=== PATIENT | female | born 1955 | race Caucasian/White ===

== ENCOUNTER → 2016-05-10 | Outpatient (CLI) | payer OTHER ==
[~2016-05-10] MED LIST: CELEBREX200 MG PO; COLACE100 MG PO; CPAP INH; CYMBALTA60 MG PO; DILAUDID 2MG(HYD2 MG PO; LASIX40 MG PO; LISINOPRIL-HCT1 EAC2 PO; MIRALAX17 GM PO; MYCOSTATIN CREA30 GM TOP; NEURONTIN600 MG PO; POTASSIUM CHLO20 ME1 PO; TOPROL XL25 MG PO; TYLENOL EXTRA500 MG PO; VITAMIN D1000 UNIT PO; XARELTO10 MG PO
== END | disposition disaster alternative care site (69) ==
LOC: GRAD 10:40
DX: M48.06 Spinal stenosis, lumbar region (principal); M43.16 Spondylolisthesis, lumbar region; M54.16 Radiculopathy, lumbar region; M47.818 Spondylosis without myelopathy or radiculopathy, sacral and sacrococcygeal region

== ENCOUNTER 2016-07-25 10:00 | Inpatient (IN) | payer OTHER ==
[~2016-07-25] VITALS: Ht 172.7 cm; Wt 133.0 kg
--- NOTE | ~2016-07-25 | CON ---
PATIENT'S NAME: NATALIIAJazmín [facility] AGE: 60 Y [address] ROOM: [place] [address] LOCATION: [facility] ADMIT DATE: 08/02/2016 Consultation DISCHARGE DATE: FAMILY PHYSICIAN: Christina Khan DO ATTENDING PHYSICIAN: KILLIAN KERR DATE OF CONSULTATION: 08/02/2016 REFERRING PHYSICIAN: Killian Kerr MD REASON FOR CONSULTATION: Medical management. HISTORY OF PRESENT ILLNESS: The patient is a 60-year-old female who is postop day 0 for left total knee arthroplasty. At this point, the patient is resting comfortably on the medical-surgical unit and has no complaints. REVIEW OF SYSTEMS: The patient denies any shortness of breath, chest pain, nausea, vomiting, diarrhea, or palpitations. PAST MEDICAL HISTORY: Significant for, 1. Obstructive sleep apnea, on CPAP. 2. Essential hypertension, on medications. 3. Peripheral neuropathy, not fully diagnosed. 4. Chronic lower extremity edema. PAST SURGICAL HISTORY: Significant for prior right total knee arthroplasty. CURRENT MEDICATIONS: 1. Cholecalciferol. 2. Duloxetine. 3. Furosemide. 4. Gabapentin. 5. Lisinopril/hydrochlorothiazide. 6. Metoprolol. 7. Potassium chloride. FAMILY HISTORY: Reviewed and is noncontributory due to known underlying etiology for her presentation to the hospital. [facility] 60 Y [address] ROOM: [place] [address] LOCATION: [facility] ADMIT DATE: 08/02/2016 Consultation DISCHARGE DATE: FAMILY PHYSICIAN: Christina Khan DO ATTENDING PHYSICIAN: KILLIAN KERR SOCIAL HISTORY: Negative for any history of ongoing toxic habits. PHYSICAL EXAMINATION: VITAL SIGNS: Blood pressure 142/79, saturating 98% on 4 L nasal cannula, pulse is 70, temperature is 97.9. GENERAL: Appears as an obese, middle-aged female, in no acute distress. NEUROLOGIC: Nonfocal. EYES: Pupils are equal and reactive to light. LYMPHATIC: No cervical lymphadenopathy. ENDOCRINE: No thyromegaly. LUNGS: Clear to auscultation bilaterally. HEART: Rate is regular. No appreciable murmurs, gallops, or rubs. GI: Abdomen is soft, nontender, nondistended. : No costovertebral angle tenderness. VASCULAR: 2+ pedal pulses. MUSCULOSKELETAL: Deferred. SKIN: Warm and dry. PSYCH: Appropriate mood, cognition, and affect. LABORATORY DATA: Studies performed in the hospital so far are none. IMPRESSION AND RECOMMENDATIONS: This is a 60-year-old female, postop day 0 for a left total knee arthroplasty. Individual problems to be addressed as follows: 1. Essential hypertension. The patient's medications have already been continued. 2. Obstructive sleep apnea. We will continue her on her home CPAP. 3. Peripheral neuropathy. She has been continued on her gabapentin. 4. Chronic lower extremity edema. She has been continued on her Lasix. 5. Pain regimen and bowel regimen have been ordered by the Primary Service. We will follow the patient with you until discharge. Thank you for allowing us to participate in the care of this patient. Time dedicated to this patient's encounter is 15 minutes. MD EBONI DE JESUS/dread PATIENT'S NAME: BARRY KEARNEY [facility] AGE: 60 Y [address] ROOM: [place] [address] LOCATION: [facility] ADMIT DATE: 08/02/2016 Consultation DISCHARGE DATE: FAMILY PHYSICIAN: Christina Khan DO ATTENDING PHYSICIAN: KILLIAN KERR /[id number] d: 08/03/16 0217 t: 08/15/16 2354, CONSULTATION REPORT
--- NOTE | ~2016-07-25 | DS ---
PATIENT'S NAME: BARRY KEARNEY [facility] AGE: 60 Y [address] ROOM: [place] [address] LOCATION: [facility] ADMIT DATE: 08/02/2016 Discharge Summary DISCHARGE DATE: 08/04/2016 FAMILY PHYSICIAN: Christina Khan DO ATTENDING PHYSICIAN: Killian Kerr PRIMARY DIAGNOSIS: Degenerative joint disease of the left knee. SECONDARY DIAGNOSES: 1. Obstructive sleep apnea, on CPAP. 2. Hypertension. 3. Obesity, BMI 45. PROCEDURE PERFORMED: Left total knee arthroplasty with computer navigation. HISTORY: The patient is a 60-year-old female, who presents with advanced left knee degenerative joint disease and associated severely compromised activities of daily living. The patient has decided to proceed with total knee arthroplasty after having been thoroughly counseled regarding the risks, benefits, limitations and alternatives. Please refer to the outpatient clinic notes and admission history and physical for this patient. HOSPITAL COURSE: The patient underwent a left total knee arthroplasty on 08/02/2016 without complications. Spinal anesthesia plus adductor canal block plus periarticular local anesthesia was utilized. The patient received 24 hours of perioperative prophylactic antibiotics and remained hemodynamically stable, neurovascularly intact throughout the entire hospital course. The postoperative prophylactic deep venous thrombosis prophylaxis consisted of Xarelto 10 mg, early mobilization and pneumatic compression devices. Daily physical therapy for gait training, transfer training range of motion and quadriceps isometric exercises were received. The patient progressed well in physical therapy. On the date of discharge, 08/04/2016, the incision at the knee was healing well and showed no signs of infection. DISPOSITION: Home. DISCHARGE ACTIVITY: The patient is to bear weight as tolerated with range of motion and quadriceps isometric exercises as instructed. The operative extremity is to be elevated at least 90% of the day. There is to be sterile 4x4 gauze dressings to the incision daily. Dr. Kerr is to be notified immediately if there is any increased pain, fevers, chills, erythema, or drainage. DISCHARGE MEDICATIONS: Include, 1. Xarelto 10 mg, take 1 tablet p.o. daily for DVT prevention. PATIENT'S NAME: BARRY KEARNEY [facility] AGE: 60 Y [address] ROOM: [place] [address] LOCATION: [facility] ADMIT DATE: 08/02/2016 Discharge Summary DISCHARGE DATE: 08/04/2016 FAMILY PHYSICIAN: Christina Khan DO ATTENDING PHYSICIAN: Killian Kerr 2. Dilaudid 2 mg, take 1 to 2 tablets p.o. every 4 hours as needed for pain. 3. Celebrex 200 mg, take 1 tablet p.o. b.i.d. as needed. FOLLOWUP: Followup date is scheduled for 08/09/2016 for initial postoperative evaluation and x-rays at that time. DANNA EM FOR KILLIAN KERR MD TLB/modl /[id number] d: 08/08/1611 t: 08/09/16 1109, DISCHARGE SUMMARY
--- NOTE | ~2016-07-25 | OR ---
PATIENT'S NAME: CATARINA KEARNEY [facility] AGE: 60 Y [address] ROOM: [place] [address] LOCATION: [facility] ADMIT DATE: 08/02/2016 OR/Procedure Report DISCHARGE DATE: FAMILY PHYSICIAN: Christina Khan DO ATTENDING PHYSICIAN: KILLIAN KERR SURGEON: Killian Kerr MD AIRPLANE TECHNICIAN: 1. DANNA De León. 2. Trevin Jessica CST/MARKER DELIVERY. DATE OF PROCEDURE: 08/02/2016 PRE-OP DIAGNOSES: 1. Degenerative joint disease, left knee. 2. Obesity (5 feet 8 inches tall and 127 kilograms). POST-OP DIAGNOSES: 1. Degenerative joint disease, left Knee. 2. Obesity (5 feet 8 inches tall and 127 kilograms). OPERATION: Left total knee arthroplasty with computer navigation. ANESTHESIA: Spinal anesthesia plus adductor canal block plus periarticular local anesthesia (ropivacaine with epinephrine and Toradol). ESTIMATED BLOOD LOSS: Less than 10 mL. DRAIN: None. SPECIMEN: None. COMPLICATIONS: None. IMPLANT SYSTEM: Hitesh Triathlon. 1. Size 4 left posterior stabilized femoral component. 2. Size 3 universal modular tibial baseplate. 3. A 9 mm posterior stabilized size 3 X3 tibial polyethylene insert. 4. A 32 mm oval X3 patellar component. INDICATIONS FOR SURGERY: Catarina Kearney is a 60-year-old female who presents with advanced left knee degenerative joint disease and associated severely compromised activities of daily living. The patient has decided to proceed with knee replacement after having been thoroughly counseled regarding the associated risks, benefits, and limitations. We have specifically reviewed the risks and implications of infection, deep venous thrombosis, pulmonary embolism, mortality, neurovascular complications, blood transfusion (and associated potential for disease transmission or transfusion reaction), PATIENT'S NAME: CATARINA KEARNEY [facility] AGE: 60 Y [address] ROOM: [place] [address] LOCATION: [facility] ADMIT DATE: 08/02/2016 OR/Procedure Report DISCHARGE DATE: FAMILY PHYSICIAN: Christina Khan DO ATTENDING PHYSICIAN: KILLIAN KERR stiffness, instability, mechanical deterioration of the components (due to wear and or loosening), and the potential need for revision. We have also emphasized the importance of active involvement and compliance with post- operative physical therapy as a means of optimizing range of motion and functional recovery. Informed consent has been granted. DESCRIPTION OF PROCEDURE: The patient was positioned supine after administration of anesthesia and prophylactic antibiotics. A well-padded pneumatic tourniquet was placed around the left proximal thigh, and the left lower extremity was prepped and draped with vigilant sterile technique. The patient's name as well as the intended operative side and procedure were confirmed with a verbal time-out involving myself, the circulating nurse, the scrub nurse, and the anesthesiologist. Examination under anesthesia demonstrated no active skin lesions or masses. There was a large effusion. There was no erythema. There was no abnormal warmth. There was a large soft tissue envelope surrounding the knee, ankle, calf, and thigh. Range of motion under anesthesia was from a 6 degree flexion contracture to 110 degrees of flexion. There was no ligamentous insufficiency. The left lower extremity was elevated and exsanguinated with an Esmarch wrap, and the pneumatic tourniquet was inflated to 300 mmHg. The knee was approached through a longitudinal midline incision. A medial parapatellar arthrotomy was performed and the patella was everted. Examination of the joint space demonstrated a large amount of benign-appearing translucent synovial fluid. The cruciate ligaments were intact. There were large osteophytes at the medial and lateral margins of the intercondylar notch. There was a large amount of subcutaneous adipose tissue (measuring approximately 3 inches between the rectus femoris tendon and the skin). There was high-grade partial-thickness articular cartilage loss involving 90% of the patella and 90% of the femoral trochlea. There were very large osteophytes at the superior and inferior and lateral margins of the patella. There were 2 cm diameter osteophytes at the superomedial and superolateral margins of the femoral trochlea. There were large osteophytes at the medial and lateral margins of the femoral trochlea as well. There was a 1 x 3 cm osteophyte at the medial femoral condyle. There was a very large osteophyte at the lateral femoral condyle as well, as well as the posterior aspect of the medial and lateral femoral condyles. There was an abnormally large fabella with associated osteophytes and eburnation. This was debrided but not excised. There were intermixed grade 3 and grade 4 degenerative changes throughout the medial femoral condyle and medial tibial plateau. There was a large osteophyte at the lateral femoral condyle. There was a 1 cm x 1.5 cm region of high-grade partial thickness articular cartilage loss and full-thickness PATIENT'S NAME: CATARINA KEARNEY [facility] AGE: 60 Y [address] ROOM: [address] [address] LOCATION: [facility] ADMIT DATE: 08/02/2016 OR/Procedure Report DISCHARGE DATE: FAMILY PHYSICIAN: Christina Khan DO ATTENDING PHYSICIAN: KILLIAN KERR fissuring at the posterior aspect of the lateral femoral condyle. There were grade 2 degenerative changes at the lateral tibial plateau. There was extensive degenerative tearing of the remnants of the medial and lateral menisci. Remnants of the menisci and cruciate ligaments were excised. The CargoSense computer navigation femoral tracker was pinned in place at the distal aspect of the femoral trochlea. Absence of motion between the femur and the tracking device was confirmed manually and visually. Femoral osseous landmarks were obtained in order to calibrate the computer navigation system. Landmarks included the center of rotation of the ipsilateral hip, the center-point of the distal femur, the femoral AP axis, 57 points on the medial femoral condyle articular surface, and 57 points on the lateral femoral condyle articular surface. The CargoSense computer navigation system was subsequently utilized to position the distal femoral resection block such that the distal femoral resection was performed perfectly perpendicular to the femoral mechanical axis. The distal femoral resection was performed with a imeem oscillating saw. The CargoSense computer navigation tibial tracker was pinned in place at the anterior aspect of the tibial plateau. Absence of motion between the tibia and the tracking device was confirmed manually and visually. Tibial osseous landmarks were obtained in order to calibrate the computer navigation system. Landmarks included the center-point of the tibial plateau, the AP tibial axis, 57 points on the medial tibial plateau articular surface, 57 points on the lateral tibial plateau articular surface, the medial malleolus, and the lateral malleolus. The CargoSense computer navigation system was subsequently utilized to position the proximal tibial resection block such that the proximal tibial resection was performed perfectly perpendicular to the tibial mechanical axis. The proximal tibial resection was performed with a Wooshii Precision oscillating saw. Perpendicularity of the tibial resection with respect to the tibial shaft axis was reconfirmed by inserting a spacer- block attached to an extramedullary guide tavon. External rotation of the anterior and posterior femoral resections was set parallel to the epicondylar axis and carefully adjusted in order to create a rectangular flexion gap. The box resection was performed with a reciprocating saw. Anterior and posterior chamfer resections were performed with the oscillating saw. Posterior condyle osteophytes were excised with an osteotome. All other osteophytes were excised with a rongeur. Resection of all remnants of the menisci was reconfirmed. Flexion and extension gaps were confirmed to be symmetric and well balanced with a spacer-block technique. The patella resection was performed with an oscillating saw such that the composite thickness of the reconstructed patella was equivalent to the PATIENT'S NAME: CATARINA KEARNEY [facility] AGE: 60 Y [address] ROOM: [place] [address] LOCATION: [facility] ADMIT DATE: 08/02/2016 OR/Procedure Report DISCHARGE DATE: FAMILY PHYSICIAN: Christina Khan DO ATTENDING PHYSICIAN: KILLIAN KERR thickness of the eyak patella. Patella tracking was confirmed to be optimal, and there was no need for a lateral retinacular release. All trial components were removed and all prepared osseous surfaces were thoroughly irrigated with pulsatile saline lavage and dried prior to cementing all three components in a single stage using Wooshii Simplex cement containing pre-mixed tobramycin. All extruded excess cement was removed. The entire joint space was thoroughly inspected and thoroughly irrigated with bacteriostatic pulsatile saline lavage to assure that there was no residual debris of any sort. Final range of motion was from full extension (with no passive hyperextension) to 130 degrees of flexion. Patella tracking was reconfirmed to be optimal. There was excellent anteroposterior stability at 90 degrees of flexion. There was 0 mm of medial lift-off to valgus stress in full extension. There was 1 mm of lateral lift-off to varus stress in full extension. The arthrotomy was closed with multiple simple and [id number] interrupted #1 Vicryl. Subcutaneous tissues were thoroughly re-irrigated with bacteriostatic pulsatile saline lavage. Subcutaneous tissues were re- approximated with simple buried interrupted #0 Vicryl sutures. The skin was closed with simple buried interrupted 2-0 Vicryl sutures followed by surgical meredith. The dressing consisted of Xeroform gauze, 4x4 gauze, ABD pads and two 6-inch Phoenix Wraps. There were no intra-operative complications. It should be noted that the physician's hospital administrative assistant played an active, integral role throughout this entire operation. By providing expert retraction, they greatly facilitated and expedited safe and effective exposure of the distal femur, proximal tibia and patella for preparation and implantation of the components. They were also actively involved in the patient's positioning, prepping and draping, as well as wound closure. MD TODD GR/dread /[id number] d: 08/02/162057 t: 08/04/162035, OPERATIVE SUMMARY
[2016-07-25] MEDS ORDERED: NEURONTIN600 MG PO (10:10)
[2016-07-25] MEDS ORDERED: LISINOPRIL-HCT1 EAC2 PO (10:14)
[2016-07-25] MEDS ORDERED: TOPROL XL25 MG PO (10:14)
[2016-07-25] MEDS ORDERED: CYMBALTA60 MG PO (10:15)
[2016-07-25] MEDS ORDERED: POTASSIUM CHLO20 ME1 PO (10:16)
[2016-07-25] MEDS ORDERED: LASIX40 MG PO (10:16)
[2016-07-25] MEDS ORDERED: VITAMIN D1000 UNIT PO (10:17)
[2016-07-25] MEDS ORDERED: CPAP INH (10:23)
--- NOTE | 2016-08-02 19:32 | NUR ---
Pt here from PACU at 1730. Spinal anesthetic. Sensation to thigh only. Pt has good pulse left foot. Foot warm, sandeep well. Ice to knee. Dressing dry and intact. Brought own CPAP. On O2 at 4L. Pt has slight headache and slight nausea. Zofran at 1750 and says some relief. Takes po water. No void yet. Is use at 1250.
--- NOTE | 2016-08-03 05:05 | NUR ---
Patient alert and oriented x3, very pleasant and cooperative, csm with in normal limits, has 2+ edema to lower extremities that is chronic prior to surgery, dressing is clean dry and intact, ice in place to knee, transfers well one assist with walker and gaitbelt to the commode, diluadid given tonight for pain control and one dose of torodol, has rested well
--- NOTE | 2016-08-03 10:10 | NUR ---
Introduced self/role to patient. She lives in [place] with her . He will be around but her granddaughter will be staying with them during the day to help out. Need to wean oxygen. Denied any barriers to discharge or at home. She is planning home tomorrow. Added my name to her marker board.
--- NOTE | 2016-08-03 16:49 | NUR ---
Pt one assist GBW. Pt had one BM today. Pt on RA. Last pain pill 1700. Pain has been tolerable per patient. Good appetite today. Pt done with antibiotics.
--- NOTE | 2016-08-04 03:06 | NUR ---
Patient is alert and oriented x3, csm with in normal limits, dressing clean dry and intact to knee, pain undercontrol this shift taking oral diluadid, transfers very well stand by assist, ice in place to knee, plans to go home today.
--- NOTE | 2016-08-04 09:52 | NUR ---
Significant Event: Ambulates with SBA and walker. Dressing changed, meredith intact. Ez wrap ice at all times. Dilaudid 2mg given at 0925. Plans to dismiss to home this afternoon. CSM WNL. Follow up:
[2016-08-04] MEDS ORDERED: TYLENOL EXTRA500 MG PO (14:32)
[2016-08-04] MEDS ORDERED: COLACE100 MG PO (14:33)
[2016-08-04] MEDS ORDERED: MYCOSTATIN CREA30 GM TOP (14:35)
[2016-08-04] MEDS ORDERED: MIRALAX17 GM PO (14:36)
[2016-08-04] MEDS ORDERED: XARELTO10 MG PO (14:37)
[2016-08-04] MEDS ORDERED: CELEBREX200 MG PO (14:38)
[2016-08-04] MEDS ORDERED: DILAUDID 2MG(HYD2 MG PO (14:38)
--- NOTE | 2016-08-04 16:24 | NUR ---
Patient doing well, amb steady with walker and 1 assist, pain well controlled with oral pain meds. Patient has adequate I&O, no BM, CMS's are WNL, Drsg cl/d/i and chagned today after shower, +2 edema noted. VSS, afebrile and pt dischaged per w/c via nursing staff.
== END 2016-08-04 15:28 | disposition disaster alternative care site (69) | DRG 470 ==
LOC: G3N 08-02 12:07
PROVIDERS: ADMIT Orthopaedic Surgery
DX: M17.12 Unilateral primary osteoarthritis, left knee (principal); Z68.42 Body mass index [BMI] 45.0-49.9, adult; I10 Essential (primary) hypertension; E66.9 Obesity, unspecified; G47.33 Obstructive sleep apnea (adult) (pediatric); G62.9 Polyneuropathy, unspecified
CPT/HCPCS: C1713; C1776; J0690; J1100; J1885; J2001; J2250; J2405; J2795; J7120